=== PATIENT | female | born 1965 | race Two or more races ===

== ENCOUNTER 2021-11-30 11:15 | Emergency (ER) | payer OTHER ==
[~2021-11-30] VITALS: Ht 160 cm; Wt 56.7 kg
== END 2021-11-30 16:22 | disposition home or self-care (01) ==
LOC: ER 11:15
DX: M54.50 Low back pain, unspecified (principal)

== ENCOUNTER 2022-05-17 22:39 | Emergency (ER) | payer OTHER ==
[~2022-05-17] VITALS: Ht 160 cm; Wt 56.7 kg
== END 2022-05-17 23:45 | disposition home or self-care (01) ==
LOC: ER 22:39
DX: S70.371A Other superficial bite of right thigh, initial encounter (principal); W54.0XXA Bitten by dog, initial encounter; Y93.89 Activity, other specified; Y92.9 Unspecified place or not applicable

== ENCOUNTER 2022-07-06 16:33 | Emergency (ER) | payer OTHER ==
[~2022-07-06] VITALS: Ht 157.5 cm; Wt 58.1 kg
== END 2022-07-06 22:06 | disposition home or self-care (01) ==
LOC: ER 16:33
DX: R42 Dizziness and giddiness (principal); H92.02 Otalgia, left ear